=== PATIENT | male | born 1955 | race Caucasian/White ===

== ENCOUNTER 2016-07-10 11:51 | Outpatient (RCR) | payer BC ==
[2016-07-10 11:52] LABS: MEAN CORPUSCULAR HEMOGLOBIN 30.7 PG (26.0-34.0); MEAN CORPUSCULAR HGB CONC 34.8 g/dL (31.0-37.0); MEAN CORPUSCULAR VOLUME 88 FL (80-100); MEAN PLATELET VOLUME 8.5 FL (6.0-9.5); PLATELET COUNT 279 10^3uL (150-450); WHITE BLOOD COUNT 8.05 10^3uL (4.0-11.0)
[2016-07-10 12:17] LABS: ALBUMIN 4.4 g/dL (3.4-5.0); ANION GAP 17.1 MEQ/L (3-15); MAGNESIUM* 1.9 mg/dL (1.6-2.3); PHOSPHORUS 3.8 mg/dL (2.4-4.9); TOTAL PROTEIN 8.1 g/dL (6.4-8.5)
[2016-07-10 12:29] LABS: BAND NEUTROPHILS % 0 % (0-6); EOSINOPHILS % 4 % (0-4); LYMPHOCYTES # 0.4 #; MONOCYTES # 0.6 #; MONOCYTES % 8 % (3-11); RBC MORPH NORMAL (NORMAL); SEGMENTED NEUTROPHILS % 81 % (51-67); TOTAL CELLS COUNTED 100
[2016-08-07 08:50] LABS: MEAN CORPUSCULAR HEMOGLOBIN 30.9 PG (26.0-34.0); MEAN CORPUSCULAR HGB CONC 34.9 g/dL (31.0-37.0); MEAN CORPUSCULAR VOLUME 89 FL (80-100); MEAN PLATELET VOLUME 8.7 FL (6.0-9.5); PLATELET COUNT 272 10^3uL (150-450); WHITE BLOOD COUNT 8.74 10^3uL (4.0-11.0)
[2016-08-07 09:16] LABS: ALBUMIN 4.2 g/dL (3.4-5.0); CALCULATED IONIZED CALCIUM 4.1 mg/dL (3.8-4.6); MAGNESIUM* 2.1 mg/dL (1.6-2.3); PHOSPHORUS 3.8 mg/dL (2.4-4.9)
[2016-08-07 10:08] LABS: BAND NEUTROPHILS % 0 % (0-6); EOSINOPHILS % 10 % (0-4); LYMPHOCYTES # 3.2 #; MONOCYTES # 1.3 #; MONOCYTES % 16 % (3-11); SEGMENTED NEUTROPHILS % 37 % (51-67); TOTAL CELLS COUNTED 100
[2016-08-07 10:09] LABS: RBC MORPH NORMAL (NORMAL)
[2016-09-13 11:00] LABS: MEAN CORPUSCULAR HEMOGLOBIN 30.6 PG (26.0-34.0); MEAN CORPUSCULAR HGB CONC 34.8 g/dL (31.0-37.0); MEAN CORPUSCULAR VOLUME 88 FL (80-100); MEAN PLATELET VOLUME 8.8 FL (6.0-9.5); PLATELET COUNT 298 10^3uL (150-450); WHITE BLOOD COUNT 7.55 10^3uL (4.0-11.0)
[2016-09-13 11:07] LABS: BAND NEUTROPHILS % 0 % (0-6); EOSINOPHILS % 8 % (0-4); LYMPHOCYTES # 1.4 #; MONOCYTES # 0.6 #; MONOCYTES % 9 % (3-11); SEGMENTED NEUTROPHILS % 64 % (51-67); TOTAL CELLS COUNTED 100
[2016-09-13 11:08] LABS: RBC MORPH NORMAL (NORMAL)
[2016-09-13 11:12] LABS: ALBUMIN 4.6 g/dL (3.4-5.0); ANION GAP 16.1 MEQ/L (3-15); MAGNESIUM* 2.2 mg/dL (1.6-2.3); PHOSPHORUS 3.3 mg/dL (2.4-4.9); TOTAL PROTEIN 7.6 g/dL (6.4-8.5)
== END 2016-10-08 | disposition home or self-care (01) ==
LOC: LAB 11:51
PROVIDERS: ATTEND Internal Medicine Hematology & Oncology
DX: C34.11 Malignant neoplasm of upper lobe, right bronchus or lung (principal); Z72.0 Tobacco use; R53.83 Other fatigue
CPT/HCPCS: 36415; 80053; 83615; 83735; 84100; 84443; 85007; 85027

== ENCOUNTER 2016-10-09 09:06 | Outpatient (RCR) | payer OTHER, MEDICAID ==
[~2016-10-09 09:06] MED LIST: HYDR-3702 PO
[2016-10-09 09:17] LABS: MEAN CORPUSCULAR HEMOGLOBIN 30.7 PG (26.0-34.0); MEAN CORPUSCULAR HGB CONC 34.4 g/dL (31.0-37.0); MEAN CORPUSCULAR VOLUME 89 FL (80-100); MEAN PLATELET VOLUME 8.5 FL (6.0-9.5); PLATELET COUNT 276 10^3uL (150-450); WHITE BLOOD COUNT 7.63 10^3uL (4.0-11.0)
[2016-10-09 09:41] LABS: ALBUMIN 4.2 g/dL (3.4-5.0); ANION GAP 15.7 MEQ/L (3-15); CALCULATED IONIZED CALCIUM 4.2 mg/dL (3.8-4.6); MAGNESIUM* 2.3 mg/dL (1.6-2.3); TOTAL PROTEIN 7.3 g/dL (6.4-8.5)
[2016-10-09 10:02] LABS: BAND NEUTROPHILS % 0 % (0-6); EOSINOPHILS % 11 % (0-4); LYMPHOCYTES # 2.7 #; MONOCYTES # 0.6 #; MONOCYTES % 9 % (3-11); RBC MORPH NORMAL (NORMAL); SEGMENTED NEUTROPHILS % 44 % (51-67); TOTAL CELLS COUNTED 100
[2016-10-30 09:18] LABS: MEAN CORPUSCULAR VOLUME 88 FL (80-100); MEAN PLATELET VOLUME 8.7 FL (6.0-9.5); PLATELET COUNT 289 10^3uL (150-450); WHITE BLOOD COUNT 7.27 10^3uL (4.0-11.0)
[2016-10-30 09:20] LABS: MEAN CORPUSCULAR HEMOGLOBIN 31.4 PG (26.0-34.0); MEAN CORPUSCULAR HGB CONC 35.6 g/dL (31.0-37.0)
[2016-10-30 09:28] LABS: BAND NEUTROPHILS % 0 % (0-6); EOSINOPHILS % 7 % (0-4); LYMPHOCYTES # 2.5 #; MONOCYTES # 0.8 #; MONOCYTES % 11 % (3-11); SEGMENTED NEUTROPHILS % 47 % (51-67); TOTAL CELLS COUNTED 100
[2016-10-30 09:29] LABS: RBC MORPH NORMAL (NORMAL)
[2016-10-30 09:41] LABS: ALBUMIN 4.2 g/dL (3.4-5.0); ANION GAP 14.7 MEQ/L (3-15); CALCULATED IONIZED CALCIUM 4.2 mg/dL (3.8-4.6); TOTAL PROTEIN 7.1 g/dL (6.4-8.5)
[2016-12-18 11:25] LABS: MEAN CORPUSCULAR HEMOGLOBIN 30.5 PG (26.0-34.0); MEAN CORPUSCULAR HGB CONC 33.9 g/dL (31.0-37.0); MEAN CORPUSCULAR VOLUME 90 FL (80-100); MEAN PLATELET VOLUME 8.5 FL (6.0-9.5); PLATELET COUNT 292 10^3uL (150-450); WHITE BLOOD COUNT 9.51 10^3uL (4.0-11.0)
[2016-12-18 11:26] LABS: BAND NEUTROPHILS % 0 % (0-6); EOSINOPHILS % 1 % (0-4); LYMPHOCYTES # 1.7 #; MONOCYTES # 0.6 #; MONOCYTES % 7 % (3-11); SEGMENTED NEUTROPHILS % 74 % (51-67); TOTAL CELLS COUNTED 100
[2016-12-18 11:27] LABS: RBC MORPH NORMAL (NORMAL)
[2016-12-18 11:37] LABS: ALBUMIN 4.9 g/dL (3.4-5.0); ANION GAP 20.2 MEQ/L (3-15); CALCULATED IONIZED CALCIUM 3.7 mg/dL (3.8-4.6); MAGNESIUM* 2.1 mg/dL (1.6-2.3); TOTAL PROTEIN 8.8 g/dL (6.4-8.5)
== END 2017-01-07 | disposition home or self-care (01) ==
LOC: LAB 09:06
PROVIDERS: ATTEND Internal Medicine Hematology & Oncology
DX: C34.11 Malignant neoplasm of upper lobe, right bronchus or lung (principal); Z72.0 Tobacco use
CPT/HCPCS: 36415; 80053; 83615; 83735; 84100; 84443; 85007; 85027

== ENCOUNTER → 2016-11-02 | Outpatient (CLI) | payer OTHER, MEDICAID | LOC: RAD 10-30 09:00 | PROVIDERS: ATTEND Internal Medicine Hematology & Oncology | DX: C34.11 Malignant neoplasm of upper lobe, right bronchus or lung (principal); Z72.0 Tobacco use | CPT/HCPCS: 71260; 74178; Q9967 ==

== ENCOUNTER → 2016-11-03 | Outpatient (CLI) | payer OTHER, MEDICAID | LOC: RAD 10:47 | PROVIDERS: ATTEND Internal Medicine Hematology & Oncology | DX: C34.11 Malignant neoplasm of upper lobe, right bronchus or lung (principal); Z72.0 Tobacco use | CPT/HCPCS: 70553; A9579 ==

== ENCOUNTER 2016-12-21 12:44 | Outpatient (RCR) | payer OTHER, MEDICAID ==
[2017-01-22 11:18] LABS: MEAN CORPUSCULAR HEMOGLOBIN 30.7 PG (26.0-34.0); MEAN CORPUSCULAR HGB CONC 34.5 g/dL (31.0-37.0); MEAN CORPUSCULAR VOLUME 89 FL (80-100); MEAN PLATELET VOLUME 8.5 FL (6.0-9.5); PLATELET COUNT 296 10^3uL (150-450); WHITE BLOOD COUNT 7.94 10^3uL (4.0-11.0)
[2017-01-22 11:29] LABS: ALBUMIN 4.5 g/dL (3.4-5.0); ANION GAP 14.3 MEQ/L (3-15)
[2017-01-22 12:07] LABS: BAND NEUTROPHILS % 0 % (0-6); EOSINOPHILS % 4 % (0-4); LYMPHOCYTES # 2.6 #; MONOCYTES # 0.6 #; MONOCYTES % 8 % (3-11); RBC MORPH NORMAL (NORMAL); SEGMENTED NEUTROPHILS % 55 % (51-67); TOTAL CELLS COUNTED 100
== END 2017-02-14 19:17 | disposition home or self-care (01) ==
LOC: LAB 12:44
PROVIDERS: ATTEND Internal Medicine Hematology & Oncology
DX: C34.11 Malignant neoplasm of upper lobe, right bronchus or lung (principal); Z72.0 Tobacco use
CPT/HCPCS: 36415; 80053; 83615; 83735; 84100; 84443; 85007; 85027

== ENCOUNTER → 2017-01-25 | Outpatient (CLI) | payer OTHER, MEDICAID ==
--- NOTE | 2017-01-25 14:18 | Diagnostic Imaging Report ---
PROCEDURE: CT chest pelvis with and abdomen with and without contrast. TECHNIQUE: Multiple contiguous axial images were obtained through the chest, abdomen and pelvis after uneventful bolus administration of intravenous contrast. Precontrast acquisitions were acquired through the abdomen. INDICATION: Lung cancer. TECHNIQUE: CT imaging of the abdomen before as well as the chest, abdomen and pelvis following the administration of intravenous contrast. CORRELATION STUDY: 11/02/2016. FINDINGS: CT CHEST: An 11 mm low-density nodule in the right lobe of the thyroid gland is relatively stable. Right-sided IJ [id number] catheter with tip terminating at the cavoatrial junction present. Thoracic aorta is unremarkable. A few small but non-pathologically enlarged mediastinal lymph nodes. Heart size is normal. Coronary artery calcifications. EG junction is unremarkable. Marked severity bullous emphysematous changes throughout the lung parenchyma are present. The spiculated mass along the basilar aspect of the right upper lobe along the junction of the fissure planes measures approximately 18 x 10 mm, stable, previously measuring 18 x 10 mm when measured in a similar fashion. A 5 mm subpleural nodule in the right middle lobe is unchanged. Soft tissue prominence in the right infrahilar region is generally stable. Right hilar lymphadenopathy is stable. No significant pleural effusion. The visualized osseous structures are negative for acute abnormality. No chica destructive change. CT ABDOMEN and PELVIS: Liver, spleen, pancreas, gallbladder and adrenal glands are unchanged and unremarkable. Abdominal aorta with mild wall calcification, nonaneurysmal. No pathologically enlarged central retroperitoneal lymph nodes. The kidneys demonstrate low-density mass in the superior pole of the right kidney, favoring probable cyst. An additional 6 mm nodule in the posteromedial mid right kidney is too small to characterize but appears stable. The gastrointestinal tract is without obstruction or inflammation. Normal appendix in the right lower quadrant. Sigmoid diverticulosis. The urinary bladder is unremarkable. Prostate gland appearing unremarkable. 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 Resultant marked bilateral foraminal narrowing owing to disc bulge. Additional foraminal narrowing at L4-L5 and likely L3-L4 levels. IMPRESSION: CT CHEST: 1. Generally stable appearance about the chest with a spiculated mass along the basilar aspect of the right upper lobe along the fissure plane overall stable. Stable right hilar lymphadenopathy. No definitive new lesion or adverse interval change. 2. Marked severity bullous emphysematous lung parenchymal changes. CT ABDOMEN and PELVIS: 1. Negative for acute abnormality about the abdomen and/or pelvis. No evidence for abdominal or pelvic metastatic disease. Dictated by: Dictated on workstation # [id number]
--- NOTE | 2017-01-25 15:26 | Diagnostic Imaging Report ---
PROCEDURE: MR imaging of the brain with and without contrast. TECHNIQUE: Multiplanar, multisequence MR imaging of the brain was performed with and without contrast. INDICATION: History of lung CA with metastatic brain lesion. COMPARISON: 11/03/2016. FINDINGS: The right inferior cerebellar lesion which does show enhancement with IV gadolinium is again identified. This has increased very slightly in size since the previous exam. This currently measures 15 x 10 x 11 mm. This previously measured 13 x 10 x 11 mm. No new lesions have developed. The ventricles and cortical gyral pattern appear normal. Periventricular white matter changes are seen with increased T2 signal consistent with probable chemotherapy changes. Normal flow voids in the major intracranial vessels. There is fluid filling the left mastoid air cells. Mild fluid in the inferior right mastoid air cells. Also some edema within the ethmoid sinuses. No evidence of calvarial lesions. IMPRESSION: 1. Slight increase in the enhancing mass along the inferior right cerebellar hemisphere when compared with previous exam now measuring approximately 15 x 10 x 11 mm. No additional lesions have developed. 2. White matter changes consistent with probable previous chemotherapy treatment or radiation. Dictated by: Dictated on workstation # [id number]
== END ==
LOC: RAD 12:10
PROVIDERS: ATTEND Internal Medicine Hematology & Oncology
DX: C34.11 Malignant neoplasm of upper lobe, right bronchus or lung (principal); Z72.0 Tobacco use
CPT/HCPCS: 70553; 71260; 74178; A9579; Q9967